=== PATIENT | female | born 1975 | race African-American/Black ===

== ENCOUNTER 2020-07-31 01:18 | Outpatient (CLI) | payer OTHER, SELFPAY ==
[2020-07-31 18:17] LABS: SARS-CoV-2 RNA PCR Negative
== END 2020-07-31 01:19 | disposition home or self-care (01) ==
LOC: ANHCOVIDDT 01:18
PROVIDERS: Visit Provider Podiatrist Foot & Ankle Surgery
DX: Z01.812 Encounter for preprocedural laboratory examination (principal); Z20.828 Contact with and (suspected) exposure to other viral communicable diseases
CPT/HCPCS: 87635; C9803; U0003

== ENCOUNTER 2020-07-31 08:02 | Outpatient (CLI) | payer OTHER, SELFPAY ==
--- NOTE | 2020-07-31 08:12 | ECG_ITS ---
Measurements Intervals [place] Rate: 80 P: 75 MI: 158 QRS: 25 QRSD: 96 T: 14 QT: 371 QTc: 428 Interpretive Statements SINUS RHYTHM DELAYED PRECORDIAL R/S TRANSITION BORDERLINE ST-T WAVE ABNORMALITY- INFERIOR LEADS BASELINE ARTIFACT- II, III, AVF BORDERLINE ECG Electronically Signed On 07-31-2020 8:44:26 CDT by Abdulkadir Arora D.O.
[2020-07-31 09:13] LABS: Anion Gap 5 mmol/L (8-16); Blood Urea Nitrogen 12 mg/dL (7-17); Calcium 9.1 mg/dL (8.4-10.2); Carbon Dioxide 30 mmol/L (22-30); Chloride 105 mmol/L (98-107); Estimated Glomerular Filt Rate > 60; Glucose 128 mg/dL (65-105); Potassium 3.9 mmol/L (3.4-5.0); Sodium 140 mmol/L (137-145)
== END 2020-07-31 08:03 | disposition home or self-care (01) ==
LOC: ANHSURGERY 08:12
PROVIDERS: Anesthesiology; Visit Provider Podiatrist Foot & Ankle Surgery
DX: Z01.818 Encounter for other preprocedural examination (principal); E11.9 Type 2 diabetes mellitus without complications
CPT/HCPCS: 36415; 80048; 93005

== ENCOUNTER 2020-08-02 01:28 | Day surgery (SDC) | payer OTHER, SELFPAY ==
[2020-07-19 14:58] VITALS: BMI 43.2
--- NOTE | 2020-07-24 08:33 | SUR.PREOP ---
Dr Cole office staff Stephanie informed patient was verbally abusive at time of preop nurse interview call, staff states will inform provider
--- NOTE | 2020-08-01 14:19 | WPDANESEPPF ---
Anes - Initial Pre Proc Eval Procedure: Operation Date: 08/02/20 09:00 Proposed Procedures p Talotarsal Stabilization Of Right Foot - Royce Cole JR, MD Date/Time: 08/01/20 14:19 Surgeon: Royce Cole JR, MD Pre Op Diagnosis: Talotarsal Instability Right Foot Patient Data Age: 44 Gender: F Height: 1.65 m Weight: 117.93 kg Allergies Allergy/AdvReac Type Severity Reaction Status Date / Time No Known Allergies Allergy Verified 07/19/20 15:01 Home Medications Medication Instructions Recorded Confirmed Type metformin 500 mg PO DAILY 07/19/20 07/19/20 History Patient hx anesthesia problems: none Family hx anesthesia problems: none [facility] Past Medical History Medical History (Updated 08/01/20 @ 14:20 by Ben Bains MD) Diabetes Endometriosis Morbid obesity with BMI of 40.0-44.9, adult Social History Social History Smoking status: Never smoker Anes - Eval Final PreProcedure Day of Procedure 08/01/20 14:19 Patient weight: morbidly obese Heart: regular rate and rhythm Lungs: clear to auscultation and normal air movement Airway: Mallampati scale class II Neurological: alert and oriented Last oral intake: >/= 8 hours ASA classification: III Emergent: no Anesthetic plan: proceed Anesthesia type and monitoring: general LMA Informed Consent: The patient's anesthetic plan and its attendant risks and benefits were discussed with the patient/family/POA. Questions were solicited and answers provided to the satisfaction of the patient/family/POA.
--- NOTE | ~2020-08-02 | XR_ITS ---
EXAMINATION: XR surgery orthopedic DATE: 08/02/2020 09:25 INDICATION: Talotarsal stabilization at the right foot TECHNIQUE: 2 fluoroscopic spot images of the right hindfoot were obtained during procedure performed by Dr. Cole. Radiologist was not present for the imaging or procedure. The amount of fluoroscopy time used during this procedure was 0.2 minutes. COMPARISON: None. FINDINGS: Arthroereisis implant projects over expected position at the sinus Tarsi. Alignment is normal. No fra cture. Joint spaces are normal. Small plantar calcaneal spur. IMPRESSION: 1. Expected appearance during right subtalar arthroereisis. Reviewed, dictated and finalized at location B.
--- NOTE | 2020-08-02 07:05 | WPDHPUPDATE1 ---
History and Physical Update Update Date/Time: 08/02/20 07:05 History and Physical has been reviewed, including an updated exam of the patient. There are NO changes in the patient's condition. Risks, benefits, and alternatives have been discussed and questions answered. Patient agrees to proceed with procedure.
[2020-08-02 07:45] VITALS: BP 170/83; PULSE 80; RESP 18; TEMP 36.6; O2SAT 100
[2020-08-02] MEDS: LACTATED RINGERS 1,000 ML 30 ML IV CONT (08:15)
[2020-08-02 08:38] LABS: Glucose Point of Care 120 (65-105)
[2020-08-02] MEDS: LIDOCAINE HCL 2% LOCAL INJ 20 ML VIAL INFILTRATE (08:50)
[2020-08-02] MEDS: ceFAZolin 2 GM/D5W 50 ML 2 GM/50 ML BAG IVPB (08:50)
[2020-08-02] MEDS: BUPIVACAINE HCL 0.5% PF 30 ML VIAL INFILTRATE (08:50)
[2020-08-02 09:40] VITALS: BP 127/76; PULSE 83; RESP 18; O2SAT 97
[2020-08-02 10:10] VITALS: BP 128/84; PULSE 77; RESP 18
--- NOTE | 2020-08-02 10:34 | OP_ITS ---
DATE OF PROCEDURE: 08/02/2020 PREOPERATIVE DIAGNOSES: 1. Talotarsal instability, right foot. 2. Posterior tibial tendinitis, right foot. POSTOPERATIVE DIAGNOSES: 1. Talotarsal instability, right foot. 2. Posterior tibial tendinitis, right foot. PROCEDURE: Talotarsal stabilization of the right foot. PATHOLOGY: None. ANESTHESIA: MAC with local. HEMOSTASIS: Pneumatic ankle tourniquet at 250 mmHg. ESTIMATED BLOOD LOSS: Minimal. MATERIALS USED: 1 size #6 HyProCure implant, 4-0 Vicryl and 4-0 Monocryl. INJECTABLES: 20 mL of a 1:1 mixture of 2% lidocaine plain and 0.5% Marcaine plain injected preoperatively, 10 mL of 2% lidocaine plain injected intraoperatively. COMPLICATIONS: None. PROCEDURE IN DETAIL: Under mild sedation, the patient was brought into the operating room and placed on the operating table in the supine position. A pneumatic ankle tourniquet was placed about the patient's right ankle. Following IV sedation, local anesthesia was obtained about the right foot utilizing 20 mL of a 1:1 mixture of 2% lidocaine plain and 0.5% Marcaine plain. The foot was then scrubbed, prepped, and draped in the usual aseptic manner. An Esmarch bandage was then used to exsanguinate the patient's right foot and the pneumatic ankle tourniquet was then inflated. Surgery began in the following manner. Attention was directed to the lateral aspect of the sinus tarsi of the right foot where a 2 cm incision was made along the lateral aspect of the joint. The patient required an extra 10 mL of 2% lidocaine plain to help with anesthesia intraoperatively. Once the anesthesia was administered, the dissection was continued deep down through the subcutaneous tissues using sharp and blunt dissection. All bleeders were ligated and cauterized as necessary. At this point, the dissection was continued deep down to the sinus tarsi where blunt tenotomy scissors were used to dissect and release the talocalcaneal ligament. After this release, a guidewire for the HyProCure system was placed from lateral to medial across the sinus tarsi. Next, a size 6 HyProCure trial sizer was placed from lateral to medial across the sinus tarsi and the foot was placed through range of motion. The midtarsal joint was noted to lock perfectly with the size 6 HyProCure implant and there were a few degrees of eversion maintained at the subtalar joint. The decision was made to continue with the size 6 HyProCure implant. It was placed from lateral to medial across the sinus tarsi canal and appropriately tightened utilizing the provided commercial trailer truck driver for the HyProCure system. Fluoroscopy was used to make sure that the trailing end of the implant was along the lateral neck of the talus on AP view and on the lateral view was noted to be appropriately positioned within the sinus tarsi canal. The talar head was now fully covered on the AP view. The lateral view showed excellent elevation of the talus atop the calcaneus with a straight cyma line. The wound site was flushed with copious amounts of sterile saline. Next, the lateral capsule of the talocalcaneal joint was reapproximated with 4-0 Vicryl and next the skin was reapproximated and coapted utilizing 4-0 Monocryl in running subcuticular suture fashion technique. Upon completion of the procedure, the incision was dressed with Steri-Strips, Adaptic, 4x4s, Kerlix, and Coban. The pneumatic ankle tourniquet was then deflated and a prompt hyperemic response was noted to all digits of the right foot. A posterior splint was then applied. The patient did very well with the procedure and the anesthesia. She was transferred to the recovery room with vital signs stable and vascular status intact to all toes of the right foot. Following a period of postoperative monitoring, the patient w
[2020-08-02 10:40] VITALS: BP 144/80; PULSE 72; RESP 18
== END 2020-08-02 11:00 | disposition home or self-care (01) ==
PROVIDERS: Visit Provider Podiatrist Foot & Ankle Surgery
PROC: (CPT 28035; principal; 2020-08-02 09:00)
DX: M25.374 Other instability, right foot (principal); M76.821 Posterior tibial tendinitis, right leg; E11.9 Type 2 diabetes mellitus without complications; Z79.84 Long term (current) use of oral hypoglycemic drugs; E66.09 Other obesity due to excess calories; Z68.30 Body mass index [BMI] 30.0-30.9, adult
CPT/HCPCS: 28899; C1713; J0690; J2001; J2250; J2704; J3010; J7120

== ENCOUNTER 2020-09-11 00:10 | Outpatient (CLI) | payer OTHER, SELFPAY ==
[2020-09-12 16:05] LABS: SARS-CoV-2 RNA PCR Negative
== END 2020-09-11 00:11 | disposition home or self-care (01) ==
LOC: ANHCOVIDDT 00:10
PROVIDERS: Visit Provider Podiatrist Foot & Ankle Surgery
DX: Z01.812 Encounter for preprocedural laboratory examination (principal); Z20.828 Contact with and (suspected) exposure to other viral communicable diseases
CPT/HCPCS: 87635; C9803; U0003

== ENCOUNTER 2020-09-13 01:01 | Day surgery (SDC) | payer OTHER, SELFPAY ==
[2020-09-10 14:17] VITALS: BMI 43.3
--- NOTE | 2020-09-12 13:01 | WPDANESEPPF ---
Anes - Initial Pre Proc Eval Procedure: Operation Date: 09/13/20 14:00 Proposed Procedures p Removal Implant Right Foot - Emanuel Hernandez DPM Date/Time: 09/12/20 13:01 Surgeon: Emanuel Hernandez DPM Pre Op Diagnosis: painful hardware right foot Patient Data Age: 44 Gender: F Height: 1.65 m Weight: 118.2 kg Allergies Allergy/AdvReac Type Severity Reaction Status Date / Time No Known Allergies Allergy Verified 09/13/20 12:13 Home Medications Medication Instructions Recorded Confirmed Type metformin 500 mg PO DAILY 07/19/20 09/13/20 History Patient hx anesthesia problems: none Family hx anesthesia problems: none [facility] Past Medical History Medical History (Updated 08/01/20 @ 14:20 by Ben Bains MD) Diabetes Endometriosis Morbid obesity with BMI of 40.0-44.9, adult Social History Social History Smoking status: Never smoker Spiritual care concerns: No Anes - Eval Final PreProcedure Day of Procedure 09/12/20 13:01 Patient weight: obese Heart: regular rate and rhythm Lungs: clear to auscultation and normal air movement Airway: Mallampati scale class II Neurological: alert and oriented Last oral intake: >/= 8 hours ASA classification: III Emergent: no Anesthetic plan: proceed Anesthesia type and monitoring: general LMA Informed Consent: The patient's anesthetic plan and its attendant risks and benefits were discussed with the patient/family/POA. Questions were solicited and answers provided to the satisfaction of the patient/family/POA.
--- NOTE | ~2020-09-13 | XR_ITS ---
EXAMINATION: XR surgery orthopedic INDICATION: Talar tarsal stabilization implant removal of the right foot TECHNIQUE: Two intraoperative fluoroscopic images are submitted for review. Total fluoroscopic time i s 30 seconds. COMPARISON: 08/02/2020 FINDINGS: Fluoroscopic images demonstrate removal of the talotarsal stabilization implant. Please ref er to procedure note for full details. IMPRESSION: 1. Removal of the talotarsal stabilization implant. Please refer to procedure note for full details. Reviewed, dictated and finalized at location A. HTER IMPRESSION: 1. Removal of the talotarsal stabilization implant. Please refer to procedure n ote for full details.
[2020-09-13] MEDS: LACTATED RINGERS 1,000 ML 30 ML IV CONT ×2 (12:30→15:06)
[2020-09-13 12:41] VITALS: BP 168/84; PULSE 95; RESP 18; TEMP 37; O2SAT 100
[2020-09-13 13:32] LABS: Glucose Point of Care 77 (65-105)
[2020-09-13 13:32] LABS: Glucose Point of Care 33 (65-105)
--- NOTE | 2020-09-13 13:57 | WPDHPUPDATE1 ---
History and Physical Update Update Date/Time: 09/13/20 13:57 History and Physical has been reviewed, including an updated exam of the patient. There are NO changes in the patient's condition. Risks, benefits, and alternatives have been discussed and questions answered. Patient agrees to proceed with procedure.
[2020-09-13] MEDS: ceFAZolin 3 GM/D5W 100 ML 100 ML IVPB (14:09)
[2020-09-13] MEDS: LIDOCAINE HCL 2% LOCAL INJ 20 ML VIAL INFILTRATE (14:32)
[2020-09-13] MEDS: BUPIVACAINE HCL 0.5% PF 30 ML VIAL INFILTRATE (14:33)
[2020-09-13] MEDS: BACITRACIN OINTMENT 15 GM TUBE 1 APPLIC TOPICAL (15:00)
--- NOTE | 2020-09-13 15:05 | PM.PROC ---
Procedure Note - Detailed Date of procedure: 09/13/20 Pre-op diagnosis: painful hardware right foot Post-op diagnosis: same Procedure performed: Removal of hardware right foot Description of procedure: Under monitored sedation patient was brought into the operating room, placed on the operating table. Following MAC anesthesia local anesthesia was obtained using 2% Lidocaine plain and 0.5% Marcaine plain. The foot was then scrubbed, prepped, and draped in the usual aseptic manner. Attention was then directed to the dorsal right foot where the previous surgical incision was located. An incision was made and deepened to the sinus tarsi using sharp and blunt dissection with great care taken to identify and retract all vital, neural and vascular structures. The implant was identified and removed with no complications Wound was then flushed with copious amounts of sterile normal saline. The deep tissue was repaired using 3-0 vicryl and the skin was repaired using 5-0 vicryl The wounds were then covered with a dry, sterile compressive dressing consisting of Steristrips, antibiotic ointment, Adaptic, 4 x 4?s, Marina and Coban. The ankle tourniquet was deflated and prompt capillary refill response noted to all digits of the right foot. Patient tolerated procedure and anesthesia well. He was transferred to the recovery room with vital signs stable and neurovascular status intact to all digits of the right foot. Following a period of post-operative monitoring the patient will be discharged home with written and oral post-operative instructions. Anesthesia: MAC Surgeon: Emanuel Hernandez DPM Hvac/R Service Technician: None Estimated blood loss (mL): 5 Drains: No Packing: No Pathology: none sent Complications: No immediate complications Condition: stable Disposition: PACU
[2020-09-13 15:10] VITALS: BP 141/79; PULSE 98; RESP 16
[2020-09-13 15:38] LABS: Glucose Point of Care 92 (65-105)
[2020-09-13 15:40] VITALS: BP 147/92; PULSE 76; RESP 16
[2020-09-13] MEDS: oxyCODONE HCL (*CRX) 5 MG TAB IR PO (15:49)
--- NOTE | 2020-09-13 16:09 | SUR.PHASEII ---
[id number] ruelas office trying to get in contact with him regarding a prescription. office is texting him to have him call me back
--- NOTE | 2020-09-13 16:20 | SUR.PHASEII ---
[id number] i was able to contact dr ruelas to have him call in a script for naproxen to [facility] pharmacy.
== END 2020-09-13 16:39 | disposition home or self-care (01) ==
PROVIDERS: Visit Provider Podiatrist Foot & Ankle Surgery
PROC: (CPT 20680; principal; 2020-09-13 14:00)
DX: T84.84XA Pain due to internal orthopedic prosthetic devices, implants and grafts, initial encounter (principal); M79.671 Pain in right foot; E11.9 Type 2 diabetes mellitus without complications; E66.01 Morbid (severe) obesity due to excess calories; Z68.41 Body mass index [BMI] 40.0-44.9, adult
CPT/HCPCS: 20680; 87635; A9270; C9803; J0690; J2250; J2405; J2704; J3010; J7120; U0003